=== PATIENT | female | born 1990 | race American Indian/Alaskan Native ===

== ENCOUNTER 2019-01-10 10:27 | Inpatient (IN) | payer OTHER ==
[~2019-01-10] VITALS: Ht 160 cm; Wt 143.0 kg
[2019-01-10] MEDS ORDERED: STOOL SOFTENER100 MG PO (11:49)
[2019-01-10] MEDS ORDERED: PRENATABS RX T1 EACH PO (11:49)
== END 2019-01-12 14:08 | DRG 833 ==
LOC: NST 10:27 → OB/GYN 11:33 → LDR 11:33 → OB/GYN 01-11 10:10
PROVIDERS: ADMIT Obstetrics & Gynecology Maternal & Fetal Medicine
PROC: 4A0HXFZ Measurement of Products of Conception, Cardiac Rhythm, External Approach (ICD-10-PCS; principal; 2019-01-10)
DX: O60.03 Preterm labor without delivery, third trimester (principal)

== ENCOUNTER 2019-01-16 08:35 | Outpatient (CLI) | payer OTHER ==
[~2019-01-16 08:35] MED LIST: PRENATABS RX T1 EACH PO; STOOL SOFTENER100 MG PO
== END 2019-01-16 10:03 | disposition home or self-care (01) ==
LOC: NST 08:35
DX: Z34.83 Encounter for supervision of other normal pregnancy, third trimester (principal)

== ENCOUNTER 2019-02-17 02:05 | Inpatient (IN) | payer OTHER ==
[~2019-02-17] VITALS: Ht 160 cm; Wt 66.2 kg
== END 2019-02-19 10:52 | DRG 805 ==
LOC: LDR 02:05 → OB/GYN 09:32
PROVIDERS: ADMIT Obstetrics & Gynecology
PROC: 10E0XZZ Delivery of Products of Conception, External Approach (ICD-10-PCS; principal; 2019-02-17)
PROC: 0UQMXZZ Repair Vulva, External Approach (ICD-10-PCS; 2019-02-17)
PROC: 4A0HXFZ Measurement of Products of Conception, Cardiac Rhythm, External Approach (ICD-10-PCS; 2019-02-17)
DX: O70.0 First degree perineal laceration during delivery (principal); O60.14X0 Preterm labor third trimester with preterm delivery third trimester, not applicable or unspecified; Z37.0 Single live birth; Z3A.36 36 weeks gestation of pregnancy

== ENCOUNTER 2020-06-28 13:10 | Day surgery (SDC) | payer OTHER ==
[~2020-06-28] VITALS: Ht 160 cm; Wt 57.6 kg
== END 2020-06-28 16:35 | disposition home or self-care (01) ==
LOC: CIR.AMB 13:10 → EDSTATUS 15:15 → CIR.AMB 16:35 → O/R 06-29 07:14 → LDR 06-29 07:14 → O/R 06-29 07:14 → LDR 07-05 07:15
PROVIDERS: ATTEND Obstetrics & Gynecology Maternal & Fetal Medicine
DX: O34.32 Maternal care for cervical incompetence, second trimester (principal); Z3A.22 22 weeks gestation of pregnancy

== ENCOUNTER 2020-08-16 10:42 | Outpatient (CLI) | payer OTHER | END 2020-08-16 14:18 | disposition home or self-care (01) | LOC: NST 10:42 | PROVIDERS: ATTEND Obstetrics & Gynecology Maternal & Fetal Medicine | DX: Z34.83 Encounter for supervision of other normal pregnancy, third trimester (principal) ==

== ENCOUNTER 2020-10-17 12:01 | Inpatient (IN) | payer OTHER ==
[~2020-10-17] VITALS: Ht 160 cm; Wt 64.4 kg
== END 2020-10-19 13:07 | disposition home or self-care (01) | DRG 807 ==
LOC: NST 12:01 → LDR 12:44 → OB/GYN 10-18 13:28
PROVIDERS: ADMIT Obstetrics & Gynecology; ATTEND Obstetrics & Gynecology
PROC: 10E0XZZ Delivery of Products of Conception, External Approach (ICD-10-PCS; principal; 2020-10-17)
PROC: 0UQMXZZ Repair Vulva, External Approach (ICD-10-PCS; 2020-10-17)
PROC: 4A1HXFZ Monitoring of Products of Conception, Cardiac Rhythm, External Approach (ICD-10-PCS; 2020-10-17)
DX: O71.82 Other specified trauma to perineum and vulva (principal); Z37.0 Single live birth; Z3A.37 37 weeks gestation of pregnancy; Z20.822 Contact with and (suspected) exposure to COVID-19